=== PATIENT | female | born 1970 | race Caucasian/White ===

== ENCOUNTER 2017-08-19 22:27 | Emergency (ER) | payer OTHER ==
[~2017-08-19] VITALS: Ht 170.2 cm; Wt 99.3 kg
[~2017-08-19 22:27] MED LIST: AMOXICILLIN500 M1 PO; BACTRIM DS TAB1 EACH PO; CEPHALEXIN 500500 M3 PO; CIPRO500 M1 PO; CIPROFLOXACIN500 M1 PO; DIFLUCAN150 MG PO; GENTAMICIN OPH3.5 G1 OPHTHALMIC; KEFLEX500 MG PO; LOPERAMIDE 2 MG2 M1 PO; MEDROLDOSEPACK PO; NOHOMEMEDICATIONS; PERCOCET 5-3251 EACH PO; PREDNISONE 20 M20 MG PO; PREDNISONE50 MG PO; PROAIR HFA8.5 GM INH; PROAIR HFA8.5 GM PO; PROMETHAZINE V473 ML PO; PROMETHAZINE-C120 ML PO; TESSALON PERLE100 MG PO; VITAMIN D1000 UNI1 PO; ZOFRAN ODT4 MG PO
[2017-08-19] MEDS ORDERED: DOXYCYCLINE MO100 MG PO (23:38)
[2017-08-19] MEDS ORDERED: ALBUTEROL2.5 MG/31 INH (23:38)
[2017-08-19 23:51] LABS: INFLUENZA A ANTIGEN None Detected (None Detect); INFLUENZA B ANTIGEN None Detected (None Detect)
[2017-08-20 01:49] VITALS: BP 163/98
== END 2017-08-20 01:52 | disposition home or self-care (01) ==
LOC: M.ERS 22:27
PROVIDERS: Nurse Practitioner Family
DX: J18.9 Pneumonia, unspecified organism (principal); F17.210 Nicotine dependence, cigarettes, uncomplicated; F10.99 Alcohol use, unspecified with unspecified alcohol-induced disorder; E11.9 Type 2 diabetes mellitus without complications; Z88.5 Allergy status to narcotic agent; Z88.1 Allergy status to other antibiotic agents; Z88.8 Allergy status to other drugs, medicaments and biological substances; Z98.890 Other specified postprocedural states; Z90.49 Acquired absence of other specified parts of digestive tract

== ENCOUNTER 2017-11-18 16:42 | Emergency (ER) | payer OTHER ==
[~2017-11-18] VITALS: Ht 170.2 cm; Wt 99.3 kg
[~2017-11-18 16:42] MED LIST changes: +ALBUTEROL2.5 MG/31 INH; +DOXYCYCLINE MO100 MG PO
[2017-11-18] MEDS ORDERED: NAPROSYN500 MG PO (16:53)
[2017-11-18 17:14] VITALS: BP 135/82
== END 2017-11-18 17:16 | disposition home or self-care (01) ==
LOC: M.ERS 16:42
DX: M25.532 Pain in left wrist (principal); E11.9 Type 2 diabetes mellitus without complications; F17.210 Nicotine dependence, cigarettes, uncomplicated; Z90.49 Acquired absence of other specified parts of digestive tract; Z88.1 Allergy status to other antibiotic agents; Z88.5 Allergy status to narcotic agent; Z88.8 Allergy status to other drugs, medicaments and biological substances

== ENCOUNTER 2017-12-05 23:30 | Emergency (ER) | payer OTHER ==
[~2017-12-05] VITALS: Ht 167.6 cm; Wt 99.3 kg
[~2017-12-05 23:30] MED LIST changes: +NAPROSYN500 MG PO
[2017-12-05] MEDS ORDERED: PREDNISONE 20 M20 M1 PO (23:43)
[2017-12-05] MEDS ORDERED: KEFLEX500 M1 PO (23:43)
[2017-12-05 23:47] VITALS: BP 136/73
== END 2017-12-05 23:48 | disposition home or self-care (01) ==
LOC: M.ERS 23:30
DX: S90.465A Insect bite (nonvenomous), left lesser toe(s), initial encounter (principal); E11.9 Type 2 diabetes mellitus without complications; Z88.1 Allergy status to other antibiotic agents; Z88.5 Allergy status to narcotic agent; Z88.8 Allergy status to other drugs, medicaments and biological substances; F17.210 Nicotine dependence, cigarettes, uncomplicated; Z90.49 Acquired absence of other specified parts of digestive tract; W57.XXXA Bitten or stung by nonvenomous insect and other nonvenomous arthropods, initial encounter; Y93.89 Activity, other specified; Y92.89 Other specified places as the place of occurrence of the external cause; Y99.8 Other external cause status

== ENCOUNTER 2018-04-12 00:09 | Emergency (ER) | payer OTHER ==
[~2018-04-12] VITALS: Ht 170.2 cm; Wt 99.8 kg
[~2018-04-12 00:09] MED LIST changes: +KEFLEX500 M1 PO; +PREDNISONE 20 M20 M1 PO
[2018-04-12] MEDS ORDERED: PREDNISONE50 MG PO (00:31)
[2018-04-12 00:50] VITALS: BP 148/92
== END 2018-04-12 00:50 | disposition home or self-care (01) ==
LOC: M.ERS 00:09
DX: J40 Bronchitis, not specified as acute or chronic (principal)

== ENCOUNTER 2018-04-18 22:03 | Emergency (ER) | payer OTHER ==
[~2018-04-18] VITALS: Ht 170.2 cm; Wt 91.6 kg
[2018-04-19 00:51] VITALS: BP 117/70
== END 2018-04-19 00:52 | disposition home or self-care (01) ==
LOC: M.ERS 22:03
DX: S93.492A Sprain of other ligament of left ankle, initial encounter (principal); E11.9 Type 2 diabetes mellitus without complications; F17.210 Nicotine dependence, cigarettes, uncomplicated; Z90.49 Acquired absence of other specified parts of digestive tract; Z88.1 Allergy status to other antibiotic agents; Z88.5 Allergy status to narcotic agent; Z88.8 Allergy status to other drugs, medicaments and biological substances; X50.1XXA Overexertion from prolonged static or awkward postures, initial encounter; Y93.89 Activity, other specified; Y92.89 Other specified places as the place of occurrence of the external cause; Y99.8 Other external cause status

== ENCOUNTER 2018-05-23 00:22 | Emergency (ER) | payer OTHER ==
[~2018-05-23] VITALS: Ht 170.2 cm; Wt 99.3 kg
[2018-05-23] MEDS ORDERED: KEFLEX500 M1 PO (01:03)
[2018-05-23 01:19] VITALS: BP 127/70
== END 2018-05-23 01:19 | disposition home or self-care (01) ==
LOC: M.ERS 00:22
DX: L03.115 Cellulitis of right lower limb (principal); E11.9 Type 2 diabetes mellitus without complications; F17.210 Nicotine dependence, cigarettes, uncomplicated; Z88.5 Allergy status to narcotic agent; Z88.6 Allergy status to analgesic agent; Z88.8 Allergy status to other drugs, medicaments and biological substances; Z90.49 Acquired absence of other specified parts of digestive tract; Z98.890 Other specified postprocedural states

== ENCOUNTER 2018-10-27 22:52 | Emergency (ER) | payer OTHER ==
[~2018-10-27] VITALS: Ht 170.2 cm; Wt 99.3 kg
[2018-10-27 23:06] VITALS: BP 125/71
[2018-10-27] MEDS ORDERED: MEDROLDOSEPACK PO (23:39)
[2018-10-27] MEDS ORDERED: ALBUTEROL2.5 MG/31 INH (23:39)
[2018-10-27] MEDS ORDERED: AZITHROMYCIN 2250 MG PO (23:39)
== END 2018-10-27 23:49 | disposition home or self-care (01) ==
LOC: M.ERS 22:52
DX: J41.0 Simple chronic bronchitis (principal); E11.9 Type 2 diabetes mellitus without complications; Z90.49 Acquired absence of other specified parts of digestive tract; Z98.890 Other specified postprocedural states; Z88.1 Allergy status to other antibiotic agents; Z88.5 Allergy status to narcotic agent; Z88.8 Allergy status to other drugs, medicaments and biological substances; F17.210 Nicotine dependence, cigarettes, uncomplicated

== ENCOUNTER 2018-12-11 22:41 | Emergency (ER) | payer OTHER ==
[~2018-12-11] VITALS: Ht 170.2 cm; Wt 99.8 kg
[~2018-12-11 22:41] MED LIST changes: +AZITHROMYCIN 2250 MG PO
[2018-12-11 23:23] LABS: ABSOLUTE EOSINOPHILS 0.1 thou/uL (0.0-0.7); ABSOLUTE MONOCYTES 0.8 thou/uL (0.0-1.2); ABSOLUTE NEUTROPHILS 5.4 thou/uL (1.6-8.1); BASOPHILS 0.1 %; EOSINOPHILS 1.5 %; HEMATOCRIT 44.9 % (37.0-47.0); HEMOGLOBIN 15.5 gm/dL (12.0-15.0); LYMPHOCYTES 32.4 %; MCH 29.7 pg (26.0-34.0); MCHC 34.4 g/dL (28.0-37.0); MCV 86.3 fL (80.0-100.0); MONOCYTES 8.3 %; MPV 9.4 fl. (7.2-11.1); NUCLEATED RBCS 0 /100WBC; PLATELET COUNT* 224 thou/uL (150-400); POLYS 57.7 %; RDW-CV 13.4 % (10.5-14.5); WBC 9.3 thou/uL (4.0-11.0)
[2018-12-11 23:37] LABS: INR 0.9; PROTIME 9.4 Seconds (9.20-11.50)
[2018-12-11 23:48] LABS: ANION GAP 13 mmol/L (7-16); BUN 14 mg/dL (7-18); CALCIUM 9.4 mg/dL (8.5-10.1); CHLORIDE 97 mmol/L (98-107); CO2 25 mmol/L (21-32); CREATININE 0.8 mg/dL (0.6-1.3); GLUCOSE 428 mg/dL (70-99); POTASSIUM 3.8 mmol/L (3.5-5.1); SODIUM 135 mmol/L (136-145)
[2018-12-11 23:57] LABS: ALBUMIN 3.5 g/dL (3.4-5.0); ALKALINE PHOSPHATASE 81 U/L (46-116); LIPASE 161 U/L (73-393); SGOT 19 U/L (15-37); SGPT 34 U/L (30-65); TOTAL BILIRUBIN 0.3 mg/dL (<0.1-1.0); TOTAL PROTEIN 7.7 g/dL (6.4-8.2); TROPONIN-I LEVEL <0.06 ng/mL (<0.06)
[2018-12-12] MEDS ORDERED: AMOXICILLIN500 M1 PO (01:31)
[2018-12-12] MEDS ORDERED: PREDNISONE50 MG PO (01:31)
[2018-12-12 01:42] VITALS: BP 125/69
--- NOTE | 2018-12-12 13:02 | EKG ---
[place] [address] ELECTROCARDIOGRAM REPORT Name: TATI CAZARES Room: [facility]#: [id number] Admission: 12/11/18 Attend Phys: Discharge: 12/12/18 Date of : 70 Report #: [id number] THIS REPORT FOR: //name// [facility] ED Test Date: 2018-12-11 Test Time: 22:48:41 Pat Name: TATI CAZARES Department: Room: Gender: F Business Coordinator: ANABEL : 1970 Requested By: Grace Diaz Order Number: [id number] MD: Ran Thomas Measurements Intervals [place] Rate: 93 P: 41 [place]: 158 QRS: 8 QRSD: 92 T: 18 QT: 338 QTc: 421 Interpretive Statements Sinus rhythm Anteroseptal infarct, old, possible Baseline wander in lead(s) V6 Compared to ECG 11/29/2016 21:17:31 Sinus tachycardia no longer present Myocardial infarct finding still present Electronically Signed On 12-12-2018 13:01:54 CDT by Ran Thomas [email or web address] <ELECTRONICALLY SIGNED> By: Ran Thomas MD, [facility] 12/12/18 1301 [id number] [id number] Ran Thomas MD, [facility] /EPI
== END 2018-12-12 01:44 | disposition home or self-care (01) ==
LOC: M.ERS 22:41
PROVIDERS: Personal Emergency Response Attendant
DX: J20.9 Acute bronchitis, unspecified (principal); E11.9 Type 2 diabetes mellitus without complications; F17.210 Nicotine dependence, cigarettes, uncomplicated; Z98.890 Other specified postprocedural states; Z90.49 Acquired absence of other specified parts of digestive tract

== ENCOUNTER 2019-03-31 20:43 | Emergency (ER) | payer OTHER ==
[~2019-03-31] VITALS: Ht 167.6 cm; Wt 99.8 kg
[2019-03-31] MEDS ORDERED: AMARYL4 MG PO (21:12)
[2019-03-31] MEDS ORDERED: NEURONTIN 300300 M1 PO (21:12)
[2019-03-31] MEDS ORDERED: LIPITOR40 MG PO (21:12)
[2019-03-31 21:13] LABS: URINE BILIRUBIN NEGATIVE (Negative); URINE BLOOD TRACE (Negative); URINE CLARITY CLEAR; URINE COLOR YELLOW; URINE GLUCOSE-RANDOM 3+ (Negative); URINE KETONES NEGATIVE (Negative); URINE LEUKOCYTES-REFLEX NEGATIVE (Negative); URINE NITRITE-REFLEX NEGATIVE (Negative); URINE PROTEIN NEGATIVE (Negative); URINE SPECIFIC GRAVITY 1.015 (1.005-1.030); URINE UROBILINOGEN 0.2 E.U./dl (0.2-1.0)
[2019-03-31] MEDS ORDERED: METFORMIN HCL500 MG PO (21:13)
[2019-03-31] MEDS ORDERED: VENTOLIN HFA 1818 GM INH (21:14)
[2019-03-31] MEDS ORDERED: FLOVENT HFA 4444 MCG INH (21:15)
[2019-03-31 21:54] LABS: ABSOLUTE BASOPHILS 0.1 thou/uL (0.0-0.2); ABSOLUTE EOSINOPHILS 0.1 thou/uL (0.0-0.7); ABSOLUTE LYMPHOCYTES 3.8 thou/uL (0.8-5.3); BASOPHILS 1.1 %; EOSINOPHILS 1.2 %; HEMATOCRIT 43.4 % (37.0-47.0); HEMOGLOBIN 14.8 gm/dL (12.0-15.0); LYMPHOCYTES 31.4 %; MCH 29.1 pg (26.0-34.0); MCHC 34.1 g/dL (28.0-37.0); MCV 85.3 fL (80.0-100.0); MONOCYTES 8.4 %; MPV 8.6 fl. (7.2-11.1); NUCLEATED RBCS 0 /100WBC; PLATELET COUNT* 242 thou/uL (150-400); POLYS 57.9 %; RBC 5.08 mil/uL (4.20-5.00); RDW-CV 13.3 % (10.5-14.5); WBC 12.1 thou/uL (4.0-11.0)
[2019-03-31 22:03] LABS: CALCIUM 9.1 mg/dL (8.5-10.1); CREATININE 0.8 mg/dL (0.6-1.3); POTASSIUM 3.7 mmol/L (3.5-5.1)
[2019-03-31 22:07] LABS: ALBUMIN 3.4 g/dL (3.4-5.0); TOTAL BILIRUBIN 0.4 mg/dL (<0.1-1.0); TOTAL PROTEIN 7.1 g/dL (6.4-8.2)
[2019-04-01] MEDS ORDERED: MACROBID 100 M100 M2 PO (00:09)
[2019-04-01 00:31] VITALS: BP 111/54
== END 2019-04-01 00:32 | disposition home or self-care (01) ==
LOC: M.ERS 20:43
PROVIDERS: Emergency Medicine; Nurse Practitioner Family
DX: N39.0 Urinary tract infection, site not specified (principal); E11.9 Type 2 diabetes mellitus without complications; F17.210 Nicotine dependence, cigarettes, uncomplicated; Z98.890 Other specified postprocedural states; Z90.49 Acquired absence of other specified parts of digestive tract; Z88.5 Allergy status to narcotic agent; Z88.1 Allergy status to other antibiotic agents

== ENCOUNTER 2019-08-12 15:18 | Emergency (ER) | payer OTHER ==
[~2019-08-12] VITALS: Ht 170.2 cm; Wt 99.8 kg
[~2019-08-12 15:18] MED LIST changes: +AMARYL4 MG PO; +FLOVENT HFA 4444 MCG INH; +LIPITOR40 MG PO; +MACROBID 100 M100 M2 PO; +METFORMIN HCL500 MG PO; +NEURONTIN 300300 M1 PO; +VENTOLIN HFA 1818 GM INH
[2019-08-12 15:31] VITALS: BP 142/76
[2019-08-12] MEDS ORDERED: DIFLUCAN150 MG PO (15:45)
[2019-08-12] MEDS ORDERED: AMOXICILLIN 50500 MG PO (15:45)
== END 2019-08-12 15:48 | disposition home or self-care (01) ==
LOC: M.ERS 15:18
DX: J32.9 Chronic sinusitis, unspecified (principal); E11.9 Type 2 diabetes mellitus without complications; F17.210 Nicotine dependence, cigarettes, uncomplicated; Z90.49 Acquired absence of other specified parts of digestive tract; Z98.890 Other specified postprocedural states; Z88.1 Allergy status to other antibiotic agents; Z88.5 Allergy status to narcotic agent

== ENCOUNTER 2019-11-04 23:25 | Emergency (ER) | payer OTHER ==
[~2019-11-04] VITALS: Ht 170.2 cm; Wt 99.8 kg
[~2019-11-04 23:25] MED LIST changes: +AMOXICILLIN 50500 MG PO
[2019-11-04 23:31] VITALS: BP 137/71
[2019-11-04] MEDS ORDERED: LIPITOR 20 MG T20 M1 PO (23:40)
[2019-11-05] MEDS ORDERED: IBUPROFEN 800800 MG PO (00:09)
[2019-11-05] MEDS ORDERED: ULTRAM 50MG TAB50 MG PO (00:09)
[2019-11-05] MEDS ORDERED: DIAZEPAM 5 MG5 M1 PO (00:12)
== END 2019-11-05 00:20 | disposition home or self-care (01) ==
LOC: M.ERS 23:25
DX: S20.212A Contusion of left front wall of thorax, initial encounter (principal); E11.9 Type 2 diabetes mellitus without complications; F17.210 Nicotine dependence, cigarettes, uncomplicated; Z98.890 Other specified postprocedural states; Z90.49 Acquired absence of other specified parts of digestive tract; Z88.1 Allergy status to other antibiotic agents; Z88.6 Allergy status to analgesic agent; Z88.8 Allergy status to other drugs, medicaments and biological substances; X50.1XXA Overexertion from prolonged static or awkward postures, initial encounter; Y93.89 Activity, other specified; Y92.89 Other specified places as the place of occurrence of the external cause; Y99.8 Other external cause status

== ENCOUNTER 2020-05-09 22:04 | Emergency (ER) | payer OTHER ==
[~2020-05-09] VITALS: Ht 167.6 cm; Wt 98.4 kg
[~2020-05-09 22:04] MED LIST changes: +DIAZEPAM 5 MG5 M1 PO; +IBUPROFEN 800800 MG PO; +LIPITOR 20 MG T20 M1 PO; +ULTRAM 50MG TAB50 MG PO
[2020-05-09 22:20] LABS: URINE BILIRUBIN NEGATIVE (Negative); URINE BLOOD 1+ (Negative); URINE CLARITY CLEAR; URINE COLOR YELLOW; URINE GLUCOSE-RANDOM 3+ (Negative); URINE KETONES TRACE (Negative); URINE LEUKOCYTES-REFLEX NEGATIVE (Negative); URINE NITRITE-REFLEX POSITIVE (Negative); URINE PROTEIN NEGATIVE (Negative); URINE UROBILINOGEN 0.2 E.U./dl (0.2-1.0)
[2020-05-09 22:22] LABS: BE -1.4 mmol/L (-2 to +3)
[2020-05-09 22:24] LABS: ABSOLUTE BASOPHILS 0.2 thou/uL (0.0-0.2); ABSOLUTE EOSINOPHILS 0.1 thou/uL (0.0-0.7); ABSOLUTE LYMPHOCYTES 4.2 thou/uL (0.8-5.3); ABSOLUTE MONOCYTES 0.8 thou/uL (0.0-1.2); ABSOLUTE NEUTROPHILS 6.8 thou/uL (1.6-8.1); BASOPHILS 1.4 %; EOSINOPHILS 0.8 %; HEMOGLOBIN 16.2 gm/dL (12.0-15.0); LYMPHOCYTES 34.8 %; MCH 29.1 pg (26.0-34.0); MCHC 33.7 g/dL (28.0-37.0); MCV 86.5 fL (80.0-100.0); MONOCYTES 6.4 %; MPV 8.3 fl. (7.2-11.1); NUCLEATED RBCS 0 /100WBC; PLATELET COUNT* 276 thou/uL (150-400); POLYS 56.6 %; RBC 5.55 mil/uL (4.20-5.00); RDW-CV 13.3 % (10.5-14.5); WBC 12.1 thou/uL (4.0-11.0)
[2020-05-09 22:25] LABS: BACTERIA-REFLEX >30 Many /HPF (None Seen); SQUAMOUS >10 Many /LPF (0-3)
[2020-05-09 22:26] LABS: CASTS None Seen /LPF (None Seen); CRYSTALS None Seen /LPF (None Seen); MUCUS None Seen strn/LPF (None Seen); URINE RBC 3-10 Few /HPF (0-2); URINE WBC-REFLEX 0-5 Rare /HPF (0-5)
[2020-05-09 22:32] LABS: CALCIUM 9.5 mg/dL (8.5-10.1); POTASSIUM 3.8 mmol/L (3.5-5.1)
[2020-05-09 22:33] LABS: APTT 26.5 Seconds (25.0-31.3); PROTIME 10.2 Seconds (9.20-11.50)
[2020-05-09 22:43] LABS: TOTAL BILIRUBIN 0.4 mg/dL (<0.1-1.0); TOTAL PROTEIN 8.6 g/dL (6.4-8.2)
[2020-05-09 23:09] VITALS: BP 138/68
--- NOTE | 2020-05-10 17:54 | EKG ---
[place] [address] ELECTROCARDIOGRAM REPORT Name: TATI CAZARES Room: [facility]#: [id number] Admission: 05/09/20 Attend Phys: Discharge: 05/09/20 Date of : 70 Date of Service: 05/09/202232 Report #: [id number] THIS REPORT FOR: //name// [facility] ED Test Date: 2020-05-09 Test Time: 22:33:17 Pat Name: TATI CAZARES Department: Room: Gender: F Channel Marketing Coordinator: [facility] : 1970 Requested By: Everardo Avitia Order Number: [id number] MD: Ran Thomas Measurements Intervals [place] Rate: 106 P: 41 [place]: 156 QRS: -6 QRSD: 95 T: 28 QT: 338 QTc: 449 Interpretive Statements Sinus tachycardia Probable left atrial enlargement Anterior infarct, old Compared to ECG 12/11/2018 22:48:41 Sinus rhythm no longer present Myocardial infarct finding still present Electronically Signed On 05-10-2020 17:54:22 CDT by Ran Thomas [email or web address] <ELECTRONICALLY SIGNED> By: Ran Thomas MD, FACC 05/10/20 1754 32 32 Ran Thomas MD, FACC /EPI
== END 2020-05-09 23:09 | disposition home or self-care (01) ==
LOC: M.ERS 22:04
PROVIDERS: Family Medicine
DX: E11.9 Type 2 diabetes mellitus without complications (principal); J44.9 Chronic obstructive pulmonary disease, unspecified; F17.210 Nicotine dependence, cigarettes, uncomplicated; Z88.5 Allergy status to narcotic agent; Z88.1 Allergy status to other antibiotic agents; Z88.8 Allergy status to other drugs, medicaments and biological substances; Z98.890 Other specified postprocedural states; Z90.49 Acquired absence of other specified parts of digestive tract

== ENCOUNTER 2020-12-26 00:58 | Emergency (ER) | payer OTHER ==
[~2020-12-26] VITALS: Ht 167.6 cm; Wt 98.0 kg
[2020-12-26 01:29] LABS: URINE BILIRUBIN NEGATIVE (Negative); URINE BLOOD NEGATIVE (Negative); URINE CLARITY CLEAR; URINE COLOR YELLOW; URINE GLUCOSE-RANDOM 3+ (Negative); URINE KETONES NEGATIVE (Negative); URINE LEUKOCYTES-REFLEX NEGATIVE (Negative); URINE NITRITE-REFLEX NEGATIVE (Negative); URINE PROTEIN NEGATIVE (Negative); URINE UROBILINOGEN 0.2 E.U./dl (0.2-1.0)
[2020-12-26 01:55] LABS: AMP/METHAMP Negative (Negative); BARBITURATES Negative (Negative); BENZODIAZEPINES Negative (Negative); COCAINE Negative (Negative); METHADONE Negative (Negative); OPIATES Negative (Negative); PCP Negative (Negative); THC Negative (Negative)
[2020-12-26 02:09] LABS: ABSOLUTE BASOPHILS 0.1 thou/uL (0.0-0.2); ABSOLUTE EOSINOPHILS 0.1 thou/uL (0.0-0.7); ABSOLUTE LYMPHOCYTES 3.3 thou/uL (0.8-5.3); ABSOLUTE MONOCYTES 0.8 thou/uL (0.0-1.2); ABSOLUTE NEUTROPHILS 6.1 thou/uL (1.6-8.1); BASOPHILS 1.1 %; EOSINOPHILS 1.3 %; HEMATOCRIT 43.1 % (37.0-47.0); HEMOGLOBIN 15.1 gm/dL (12.0-15.0); LYMPHOCYTES 31.2 %; MCH 30.1 pg (26.0-34.0); MCV 86.2 fL (80.0-100.0); MONOCYTES 8.1 %; MPV 8.7 fl. (7.2-11.1); NUCLEATED RBCS 0 /100WBC; PLATELET COUNT* 275 thou/uL (150-400); POLYS 58.3 %; RDW-CV 13.6 % (10.5-14.5); WBC 10.5 thou/uL (4.0-11.0)
[2020-12-26 02:18] LABS: CALCIUM 9.7 mg/dL (8.5-10.1); CREATININE 0.8 mg/dL (0.6-1.3)
[2020-12-26 02:23] LABS: ALBUMIN 3.9 g/dL (3.4-5.0); TOTAL BILIRUBIN 0.1 mg/dL (<0.1-1.0); TOTAL PROTEIN 8.3 g/dL (6.4-8.2)
[2020-12-26] MEDS ORDERED: PROAIR HFA8.5 GM INH (02:26)
[2020-12-26] MEDS ORDERED: LEXAPRO 10 MG T10 M2 PO (02:26)
[2020-12-26] MEDS ORDERED: GLUMETZA1000 PO (02:26)
--- NOTE | 2020-12-26 14:20 | EKG ---
[place] [address] ELECTROCARDIOGRAM REPORT Name: TATI CAZARES [facility]#: [id number] Admission: 12/26/20 Attend Phys: Discharge: 12/26/20 Date of : 70 Date of Service: 12/26/20 0111 Report #: [id number] THIS REPORT FOR: //name// [facility] ED Test Date: 2020-12-26 Test Time: 01:11:26 Pat Name: TATI CAZARES Department: Room: Gender: F Process Consultant: [place] : 1970 Requested By: Loretta Eldridge Order Number: [id number] MD: Ran Thomas Measurements Intervals [place] Rate: 87 P: 31 [place]: 164 QRS: -15 QRSD: 91 T: 15 QT: 368 QTc: 443 Interpretive Statements Sinus rhythm Borderline left axis deviation Possible anteroseptal infarct, old Compared to ECG 05/09/2020 22:33:17 Sinus tachycardia no longer present Myocardial infarct finding still present Electronically Signed On 12-26-2020 14:20:09 CDT by Ran Thomas [email or web address] <ELECTRONICALLY SIGNED> By: Ran Thomas MD, FAC 12/26/20 1420 011 011 Ran Thomas MD, [facility] /EPI
== END 2020-12-26 02:45 | disposition home or self-care (01) ==
LOC: M.ERS 00:58
PROVIDERS: Emergency Medicine
DX: F32.9 Major depressive disorder, single episode, unspecified (principal); R07.89 Other chest pain; J44.9 Chronic obstructive pulmonary disease, unspecified; E11.9 Type 2 diabetes mellitus without complications; F17.210 Nicotine dependence, cigarettes, uncomplicated; Z88.5 Allergy status to narcotic agent; Z88.1 Allergy status to other antibiotic agents; Z88.8 Allergy status to other drugs, medicaments and biological substances; Z98.51 Tubal ligation status; Z90.49 Acquired absence of other specified parts of digestive tract; Z98.890 Other specified postprocedural states; Z79.899 Other long term (current) drug therapy

== ENCOUNTER 2021-05-11 17:24 | Emergency (ER) | payer OTHER ==
[~2021-05-11] VITALS: Ht 167.6 cm; Wt 99.3 kg
[~2021-05-11 17:24] MED LIST changes: +GLUMETZA1000 PO; +LEXAPRO 10 MG T10 M2 PO
[2021-05-11] MEDS ORDERED: AMOXICILLIN 50500 MG PO (20:03)
[2021-05-11] MEDS ORDERED: TRAMADOL 50 MG50 MG PO (20:05)
[2021-05-11 20:14] VITALS: BP 139/86
== END 2021-05-11 20:15 | disposition home or self-care (01) ==
LOC: M.ERS 17:24
DX: K08.89 Other specified disorders of teeth and supporting structures (principal); K03.81 Cracked tooth; J44.9 Chronic obstructive pulmonary disease, unspecified; E11.9 Type 2 diabetes mellitus without complications; F17.210 Nicotine dependence, cigarettes, uncomplicated; Z98.51 Tubal ligation status; Z90.49 Acquired absence of other specified parts of digestive tract; Z88.1 Allergy status to other antibiotic agents; Z88.5 Allergy status to narcotic agent